=== PATIENT | female | born 1955 | race Caucasian/White ===

== ENCOUNTER 2023-11-23 07:01 | Day surgery (SDC) | payer MEDICAID ==
[2023-11-23] MEDS ORDERED: MEPERIDINE 100 MG INJ. 100 MG/ML VIAL ONE (07:44)
[2023-11-23] MEDS ORDERED: MIDAZOLAM HCL 5 MG/5 ML VIAL ONE ×2 (07:45→09:45)
[2023-11-23] MEDS ORDERED: SIMETHICONE 40 MG/0.6 ML ML ONE (09:46)
[2023-11-23 13:16] VITALS: BP_SYST 107; PULSE 72; RESP 14; TEMP 97.1; O2SAT 97
== END 2023-11-23 11:01 | disposition home or self-care (01) ==
LOC: SMU 07:01 → SDS 07:01
PROVIDERS: ATTEND Student in an Organized Health Care Education/Training Program
DX: Z12.11 Encounter for screening for malignant neoplasm of colon (principal); K63.5 Polyp of colon; K57.30 Diverticulosis of large intestine without perforation or abscess without bleeding; K64.4 Residual hemorrhoidal skin tags; K64.8 Other hemorrhoids; E07.89 Other specified disorders of thyroid; Z79.890 Hormone replacement therapy; Z90.89 Acquired absence of other organs; Z87.891 Personal history of nicotine dependence
CPT/HCPCS: 45385; 88305; 99152; G0378; J2250; J2175

== ENCOUNTER 2024-02-15 07:00 | Day surgery (SDC) | payer MEDICAID ==
[~2024-02-15] VITALS: Ht 157.5 cm; Wt 67.1 kg
[2024-02-15] MEDS ORDERED: SIMETHICONE 40 MG/0.6 ML ML ONE (09:34)
[2024-02-15] MEDS ORDERED: MIDAZOLAM HCL 5 MG/5 ML VIAL ONE (09:34)
[2024-02-15] MEDS ORDERED: BENZOCAINE 20% 0.5mL UD SPRAY MM ONE (09:34)
[2024-02-15] MEDS ORDERED: MEPERIDINE 100 MG INJ. 100 MG/ML VIAL ONE (09:34)
[2024-02-15 11:28] VITALS: O2SAT 98
[2024-02-15 16:01] VITALS: BP_SYST 114; PULSE 80; RESP 11
== END 2024-02-15 10:54 | disposition home or self-care (01) ==
LOC: SDS 07:00 → SMU 07:01 → SDS 10:54
PROVIDERS: ATTEND Student in an Organized Health Care Education/Training Program
DX: K21.00 Gastro-esophageal reflux disease with esophagitis, without bleeding (principal); K29.50 Unspecified chronic gastritis without bleeding; D13.0 Benign neoplasm of esophagus; R12 Heartburn; K44.9 Diaphragmatic hernia without obstruction or gangrene; E03.9 Hypothyroidism, unspecified; Z79.890 Hormone replacement therapy; Z79.899 Other long term (current) drug therapy
CPT/HCPCS: 43239; 88305; 88312; 88313; J2175; J2250